=== PATIENT | female | born 2000 | race Hispanic/Latino ===

== ENCOUNTER 2019-08-30 07:05 | Emergency (ER) | payer MEDICAID ==
[2019-08-30 07:12] VITALS: BP 111/62
[2019-08-30 08:08] LABS: Bacteria,Urine 2+ /HPF (Negative); Bilirubin,Urine NEG (Negative); Blood,Urine NEG (Negative); Color,Urine Yellow (Yellow); Mucus,Urine 1+ /HPF; Protein,Urine <15 mg/dL mg/dL (Negative); Urobilinogen,Urine < 2.0 mg/dL (<2.0)
--- NOTE | 2019-08-30 08:17 | Emergency Department Report ---
ED Female HPI - General Chief complaint: Urogenital-Female Stated complaint: 14WKS PREG, IRRITATION Source: patient Mode of arrival: Ambulatory Limitations: No Limitations - History of Present Illness Initial comments: 19-year-old -[place]ralt[place] female that is 1 para 0 last menstrual period was 05/19/2019 presents to the emergency room complaining of vaginal irritation for 6 days. Patient states that she has been having some mild thick vaginal discharge with labia irritation. Patient states sometimes it itches sometimes it ramos. Patient denies any dysuria. Patient is followed by OB Dr. Maxwell Gaona. She reports she has an appointment with him next week but could not wait. Patient denies any abdominal pain vaginal bleeding. She has no concerns for STDs. Onset/Timin -: days(s) Severity scale (0 -10): 7 Consistency: constant Improves with: none Worsens with: none Are you Now?: Yes Last Menstrual Period: 05/19/19 EDC: 02/23/20 Associated Symptoms: denies other symptoms - Related Data Sexually active: Yes : 1 Para: 0 Previous Rx's Medication Instructions Recorded Last Taken Type cephALEXin [Keflex] 500 mg PO Q12HR 7 Days #14 cap 08/30/19 Unknown Rx Allergies Allergy/AdvReac Type Severity Reaction Status Date / Time No Known Allergies Allergy Unverified 08/30/19 07:08 ED Review of Systems ROS: Stated complaint: 14WKS PREG, IRRITATION Other details as noted in HPI Comment: All other systems reviewed and negative ED Past Medical Hx - Past Medical History Previous Medical History?: No - Surgical History Past Surgical History?: No - Social History Smoking Status: Never Smoker Substance Use Type: None - Medications Home Medications: Home Medications Medication Instructions Recorded Confirmed Last Taken Type cephALEXin [Keflex] 500 mg PO Q12HR 7 Days #14 cap 08/30/19 Unknown Rx ED Physical Exam - General Limitations: No Limitations General appearance: alert, in no apparent distress - Head Head exam: Present: atraumatic, normocephalic - Eye Eye exam: Present: normal appearance - ENT ENT exam: Present: mucous membranes moist - External exam: Present: erythema, swelling Speculum exam: Present: vaginal discharge - Back Exam Back exam: Present: normal inspection - Neurological Exam Neurological exam: Present: alert, oriented X3, normal gait - Psychiatric Psychiatric exam: Present: normal affect, normal mood - Skin Skin exam: Present: warm, dry, intact, normal color. Absent: rash ED Course Vital Signs 08/30/19 07:08 Temperature 98.1 F Pulse Rate 98 H Respiratory 18 Rate Blood Pressure 111/62 O2 Sat by Pulse 97 Oximetry ED Medical Decision Making - Medical Decision Making 19-year-old -[place] female that is 1 para 0 last menstrual period was 05/19/2019 presents to the emergency room complaining of vaginal irritation for 6 days. Patient states that she has been having some mild thick vaginal discharge with labia irritation. Patient states sometimes it itches sometimes it ramos. Patient denies any dysuria. Patient is followed by OB Dr. Maxwell Gaona. She reports she has an appointment with him next week but could not wait. Patient denies any abdominal pain vaginal bleeding. She has no concerns for STDs. Wet prep sent urinalysis has been sent. Critical care attestation.: If time is entered above; I have spent that time in minutes in the direct care of this critically ill patient, excluding procedure time. ED Disposition Clinical Impression: UTI (urinary tract infection) during Disposition: DC-01 TO HOME OR SELFCARE Is pt being admited?: No Does the pt Need Aspirin: No Condition: Stable Instructions: Urinary Tract Infection in Women (ED) Additional Instructions: Urinalysis shows history of positive for urinary tract infection. Your vaginal wet prep was negative for any trichomonas no bacterial vaginosis or yeast infection. Please take medication as prescribed. Increase your fluid intake. And follow-up with your [facility] Prescriptions: cephALEXin [Keflex] 500 mg PO Q12HR 7 Days #14 cap Forms: Work/School Release Form(ED)
== END 2019-08-30 08:55 | disposition home or self-care (01) ==
LOC: ED 07:05
DX: O23.31 Infections of other parts of urinary tract in pregnancy, first trimester (principal); Z3A.13 13 weeks gestation of pregnancy
CPT/HCPCS: 81001; 87086; 87210

== ENCOUNTER 2020-10-19 09:12 | Emergency (ER) | payer MEDICAID ==
[2020-10-19 09:45] VITALS: BP 126/76
--- NOTE | 2020-10-19 16:58 | Emergency Department Report ---
Stated Complaint: POSS - HPI History of Present Illness: 20-year-old -L[place]anese female presents to the emergency room reporting that she had a home test and wants a confirmation test. Patient currently has no vaginal discharge or vaginal bleeding no pelvic pain no dysuria no fever no chills no nausea no vomiting. - Exam Vital Signs: Vital Signs 10/19/20 09:44 Pulse Rate 96 H Blood Pressure 126/76 [Right] O2 Sat by Pulse 96 Oximetry Physical Exam: General: Awake, appropriately interactive, no acute distress. Neck: Supple. Full range of motion intact. Cardiovascular: Normal peripheral perfusion. Pulmonary: No respiratory distress. Patient is speaking normally without use of accessory muscles. Skin: No apparent rashes or lesions. Neurological: No facial asymmetry. Speech is clear. Follows commands. Patient is alert and oriented. Musculoskeletal: Full range of motion, no crepitus. No tenderness to palpate nonerythematous no edema test appreciated. Able to bear weight and ambulate without difficulty. Distal neurovascular and motor/sensory function is intact. Psych: Cooperative. Appropriate mood and affect. MSE screening note: Focused history and physical exam performed. Due to findings the following was ordered: 20-year-old -L[place]anese female presents to the emergency room reporting that she had a home test and wants a confirmation test. Patient currently has no vaginal discharge or vaginal bleeding no pelvic pain no dysuria no fever no chills no nausea no vomiting. [facility] at [facility] [place]. Handout was given to patient ED Disposition for MSE Is pt being admited?: No Does the pt Need Aspirin: No Condition: Stable Additional Instructions: Recommend to follow-up at the [facility] in [place]. Referrals: PRIMARY CARE, [Primary Care Provider] - 3-5 Days ,[facility] [Other] - 3-5 Days
== END 2020-10-19 10:00 ==
LOC: ED 09:12
DX: Z32.00 Encounter for pregnancy test, result unknown (principal)
CPT/HCPCS: 99281

== ENCOUNTER 2020-10-26 09:23 | Emergency (ER) | payer MEDICAID ==
[2020-10-26 10:00] VITALS: BP 110/62
[2020-10-26 10:56] LABS: Bilirubin,Urine NEG (Negative); Blood,Urine SM (Negative); Color,Urine Yellow (Yellow); Mucus,Urine 3+ /HPF
--- NOTE | 2020-10-26 11:04 | Emergency Department Report ---
ED HPI - General Chief complaint: Vaginal Bleeding Stated complaint: 5WKS PREG/BLEEDING/CRAMPING Time Seen by Provider: 10/26/20 10:26 Source: patient Mode of arrival: Ambulatory Limitations: No Limitations - History of Present Illness Initial comments: This is a 20-year-old female nontoxic, well nourished in appearance, no acute signs of distress presents to the ED with c/o of vaginal bleeding and pelvic pain x2 days. Patient stated is about 8 weeks . Patient stated she goes about 1-2 pads in a day. Paitent stated is more of spotting. Patient denies any upper abdominal pain. Patient denies any vaginal discharge or foul odor. Patient denies any nausea, vomiting, chest pain, shortness of breathe, fever, chills, headache, stiff neck, numbness, tingling. Patient denies any urinary symptoms. Patient denies any allergies or PMH. Last menstrual cycle was about September 16. MD Complaint: vaginal bleeding, other (pelvic pain) -: days(s) Location: pelvis Radiation: none Severity: mild Severity scale (0 -10): 3 Quality: cramping, aching Consistency: constant Improves with: none Worsens with: none Associated symptoms: vaginal bleeding. denies: nausea/vomiting, vaginal discharge, abdominal pain, dysuria, headache, vision changes, malaise, dysparuenia, rash, seizure, shortness of breath, syncope, weakness Vaginal bleeding: light :: Yes Number of weeks : 8 Pre-mary jane care: none - Related Data Previous Rx's Medication Instructions Recorded Last Taken Type cephALEXin [Keflex] 500 mg PO Q12HR 7 Days #14 cap 08/30/19 Unknown Rx 21/Iron Fu/Folic Acid 1 each PO DAILY #30 tablet 10/26/20 Unknown Rx [ Complete Caplet] Allergies Allergy/AdvReac Type Severity Reaction Status Date / Time No Known Allergies Allergy Unverified 08/30/19 07:08 ED Review of Systems ROS: Stated complaint: 5WKS PREG/BLEEDING/CRAMPING Other details as noted in HPI Constitutional: denies: chills, fever Eyes: denies: eye pain, eye discharge, vision change ENT: denies: ear pain, throat pain Respiratory: denies: cough, shortness of breath, wheezing Cardiovascular: denies: chest pain, palpitations Endocrine: no symptoms reported Gastrointestinal: denies: abdominal pain, nausea, diarrhea Genitourinary: abnormal menses. denies: urgency, dysuria, discharge Musculoskeletal: denies: back pain, joint swelling, arthralgia Skin: denies: rash, lesions Neurological: denies: headache, weakness, paresthesias Psychiatric: denies: anxiety, depression Hematological/Lymphatic: denies: easy bleeding, easy bruising ED Past Medical Hx - Past Medical History Previous Medical History?: No - Surgical History Past Surgical History?: No - Social History Smoking Status: Never Smoker Substance Use Type: None - Medications Home Medications: Home Medications Medication Instructions Recorded Confirmed Last Taken Type cephALEXin [Keflex] 500 mg PO Q12HR 7 Days #14 cap 08/30/19 Unknown Rx 21/Iron Fu/Folic Acid 1 each PO DAILY #30 tablet 10/26/20 Unknown Rx [ Complete Caplet] ED Physical Exam - General Limitations: No Limitations General appearance: alert, in no apparent distress - Head Head exam: Present: atraumatic, normocephalic - Eye Eye exam: Present: normal appearance - Neck Neck exam: Present: normal inspection, full ROM. Absent: lymphadenopathy - Respiratory Respiratory exam: Absent: respiratory distress - Cardiovascular Cardiovascular Exam: Present: regular rate - GI/Abdominal GI/Abdominal exam: Present: soft. Absent: distended, tenderness - Extremities Exam Extremities exam: Present: normal inspection, full ROM - Back Exam Back exam: Present: normal inspection, full ROM. Absent: tenderness, CVA tenderness (R), CVA tenderness (L), muscle spasm, paraspinal tenderness, vertebral tenderness, rash noted - Neurological Exam Neurological exam: Present: alert, oriented X3, normal gait - Psychiatric Psychiatric exam: Present: normal affect, normal mood - Skin Skin exam: Present: warm, dry, intact, normal color. Absent: rash ED Course Vital Signs 10/26/20 09:57 Temperature 98.8 F Pulse Rate 98 H Respiratory 18 Rate Blood Pressure 110/62 [Right] O2 Sat by Pulse 98 Oximetry - Reevaluation(s) Reevaluation #1: 10/26/20 11:04 Patient is speaking in full sentences with no signs of distress noted. ED Medical Decision Making - Lab Data Result diagrams: 10/26/20 10:33 Lab Results 10/26/20 10/26/20 10/26/20 Range/Units 10:03 10:33 10:33 WBC 6.7 (4.5-11.0) K/mm3 RBC 4.32 (3.65-5.03) M/mm3 Hgb 13.7 (10.1-14.3) gm/dl Hct 39.8 (30.3-42.9) % MCV 92 (79-97) fl MCH 32 (28-32) pg MCHC 34 (30-34) % RDW 12.7 L (13.2-15.2) % Plt Count 224 (140-440) K/mm3 Lymph % (Auto) 19.5 (13.4-35.0) % Rogers % (Auto) 8.3 H (0.0-7.3) % Eos % (Auto) 2.0 (0.0-4.3) % Baso % (Auto) 0.4 (0.0-1.8) % Lymph # (Auto) 1.3 (1.2-5.4) K/mm3 Rogers # (Auto) 0.6 (0.0-0.8) K/mm3 Eos # (Auto) 0.1 (0.0-0.4) K/mm3 Baso # (Auto) 0.0 (0.0-0.1) K/mm3 Seg Neutrophils % 69.8 (40.0-70.0) % Seg Neutrophils # 4.7 (1.8-7.7) K/mm3 PT (12.2-14.9) Sec. INR (0.87-1.13) APTT (24.2-36.6) Sec. HCG, Quant (0-4) mIU/mL Urine Color Yellow (Yellow) Urine Turbidity Slightly-cloudy (Clear) Urine pH 6.0 (5.0-7.0) Ur Specific [place]ham 1.024 (1.003-1.030) Urine Protein 30 mg/dl (Negative) mg/dL Urine Glucose (UA) Neg (Negative) mg/dL Urine Ketones Neg (Negative) mg/dL Urine Blood Sm (Negative) Urine Nitrite Neg (Negative) Urine Bilirubin Neg (Negative) Urine Urobilinogen 2.0 (<2.0) mg/dL Ur Leukocyte Esterase Sm (Negative) Urine WBC (Auto) 6.0 (0.0-6.0) /HPF Urine RBC (Auto) 3.0 (0.0-6.0) /HPF U Epithel Cells (Auto) 10.0 (0-13.0) /HPF Urine Mucus 3+ /HPF Blood Type A POSITIVE 10/26/20 10/26/20 Range/Units 10:33 10:53 WBC (4.5-11.0) K/mm3 RBC (3.65-5.03) M/mm3 Hgb (10.1-14.3) gm/dl Hct (30.3-42.9) % MCV (79-97) fl MCH (28-32) pg MCHC (30-34) % RDW (13.2-15.2) % Plt Count (140-440) K/mm3 Lymph % (Auto) (13.4-35.0) % Rogers % (Auto) (0.0-7.3) % Eos % (Auto) (0.0-4.3) % Baso % (Auto) (0.0-1.8) % Lymph # (Auto) (1.2-5.4) K/mm3 Rogers # (Auto) (0.0-0.8) K/mm3 Eos # (Auto) (0.0-0.4) K/mm3 Baso # (Auto) (0.0-0.1) K/mm3 Seg Neutrophils % (40.0-70.0) % Seg Neutrophils # (1.8-7.7) K/mm3 PT 15.2 H (12.2-14.9) Sec. INR 1.15 H (0.87-1.13) APTT 34.3 (24.2-36.6) Sec. HCG, Quant 5068 H (0-4) mIU/mL Urine Color (Yellow) Urine Turbidity (Clear) Urine pH (5.0-7.0) Ur Specific [place] (1.003-1.030) Urine Protein (Negative) mg/dL Urine Glucose (UA) (Negative) mg/dL Urine Ketones (Negative) mg/dL Urine Blood (Negative) Urine Nitrite (Negative) Urine Bilirubin (Negative) Urine Urobilinogen (<2.0) mg/dL Ur Leukocyte Esterase (Negative) Urine WBC (Auto) (0.0-6.0) /HPF Urine RBC (Auto) (0.0-6.0) /HPF U Epithel Cells (Auto) (0-13.0) /HPF Urine Mucus /HPF Blood Type - Radiology Data [facility] [address] [place] [address] Ultrasound Report Signed Patient: ROB MARKHAM MR#: [id number] : 2000 Acct:[id number] Age/Sex: 20 / F ADM Date: 10/26/20 Loc: ED Attending Dr: Ordering Physician: FILOMENA GOOD NP Date of Service: 10/26/20 Procedure(s): US OB <= 14 weeks fetus Accession Number(s): [id number] cc: FILOMENA GOOD NP TRANSABDOMINAL AND TRANSVAGINAL OB PELVIC ULTRASOUND INDICATION / CLINICAL INFORMATION: Pelvic pain and moderate vaginal bleeding. COMPARISON: None available. FINDINGS: Transabdominal: The uterus measures 8.6 x 3.8 x 6.1 cm. There is a tiny saclike structure in the endometrial cavity in the uterine body. The right ovary measures 3.2 x 1.6 x 1.5 cm and the left ovary 3.5 x 2.3 x 1.8 cm. There is normal blood flow to both ovaries on Doppler exam. There is a trace amount of free fluid in the cul-de-sac. There is no evidence of an extraovarian mass. Transvaginal: There is a tiny saclike structure in the endometrial cavity measuring 5 weeks 1 day. A possible small yolk sac is present. I do not identify a pole with cardiac activity. There is no evidence of implantation hemorrhage. The right ovary measures 3.4 x 1.9 x 2.3 cm and contains a subcentimeter cyst. The left ovary measures 3.9 x 2.4 x 2.4 cm and contains a 1.9 cm corpus luteal cyst. There is a trace amount of free fluid in the cul-de-sac. IMPRESSION: 1. Probable 5 week 1 day intrauterine gestational sac is of uncertain viability. A follow-up ultrasound in 7-10 days may be helpful in further evaluation. 2. 1.9 cm corpus luteal cyst in the left ovary. Trace amount of free fluid in the cul-de-sac. No evidence of an extraovarian mass. Signer Name: Nate Casas MD Signed: 10/26/2020 11:33 AM Workstation Name: [id number] Transcribed By: RT Dictated By: Nate Casas MD Electronically Authenticated By: Nate Casas MD Signed Date/Time: 10/26/20 1133 DD/ 1129 TD/TT: [facility] [address] [place] [address] Ultrasound Report Signed Patient: ROB MARKHAM MR#: [id number] : 2000 Acct:[id number] Age/Sex: 20 / F ADM Date: 10/26/20 Loc: ED Attending Dr: Ordering Physician: FILOMENA GOOD NP Date of Service: 10/26/20 Procedure(s): US OB transvaginal Accession Number(s): [id number] cc: FILOMENA GOOD NP TRANSABDOMINAL AND TRANSVAGINAL OB PELVIC ULTRASOUND INDICATION / CLINICAL INFORMATION: Pelvic pain and moderate vaginal bleeding. COMPARISON: None available. FINDINGS: Transabdominal: The uterus measures 8.6 x 3.8 x 6.1 cm. There is a tiny saclike structure in the endometrial cavity in the uterine body. The right ovary measures 3.2 x 1.6 x 1.5 cm and the left ovary 3.5 x 2.3 x 1.8 cm. There is normal blood flow to both ovaries on Doppler exam. There is a trace amount of free fluid in the cul-de-sac. There is no evidence of an extraovarian mass. Transvaginal: There is a tiny saclike structure in the endometrial cavity measuring 5 weeks 1 day. A possible small yolk sac is present. I do not identify a pole with cardiac activity. There is no evidence of implantation hemorrhage. The right ovary measures 3.4 x 1.9 x 2.3 cm and contains a subcentimeter cyst. The left ovary measures 3.9 x 2.4 x 2.4 cm and contains a 1.9 cm corpus luteal cyst. There is a trace amount of free fluid in the cul-de-sac. IMPRESSION: 1. Probable 5 week 1 day intrauterine gestational sac is of uncertain viability. A follow-up ultrasound in 7-10 days may be helpful in further evaluation. 2. 1.9 cm corpus luteal cyst in the left ovary. Trace amount of free fluid in the cul-de-sac. No evidence of an extraovarian mass. Signer Name: Nate Casas MD Signed: 10/26/2020 11:33 AM Workstation Name: [id number] Transcribed By: RT Dictated By: Nate Casas MD Electronically Authenticated By: Nate Casas MD Signed Date/Time: 10/26/20 1133 DD/ 1129 TD/TT: - Medical Decision Making This is a 20-year-old female presents with threatened miscarriage. Patient is stable and was examined by me. Normal abdominal exam. US OB obtained and dictated by the radiologist. Ua obtained. Quantative serum test obtained. Patient notified of the US report with no questions noted by the patient. Patient was instructed f/u with [facility] in 3-5 days. RH factor positive. Labs within normal limits. At time of discharge, the patient does not seem toxic or ill in appearance. No acute signs of distress noted. Patient agrees to discharge treatment plan of care. No further questions noted by the patient. Critical care attestation.: If time is entered above; I have spent that time in minutes in the direct care of this critically ill patient, excluding procedure time. ED Disposition Clinical Impression: Threatened miscarriage Disposition: DC-01 TO HOME OR SELFCARE Is pt being admited?: No Does the pt Need Aspirin: No Condition: Stable Instructions: Threatened Miscarriage Additional Instructions: Follow-up with a [facility] doctor in 3-5 days or if symptoms worsen and continue return to emergency room as soon as possible. Prescriptions: 21/Iron Fu/Folic Acid [ Complete Caplet] 1 each PO DAILY #30 tablet Referrals: [facility] [Other] - 3-5 Days [facility] [Provider Group] - 3-5 Days [facility] [Provider Group] - 3-5 Days Forms: Work/School Release Form(ED) Time of Disposition: 11:49
[2020-10-26 11:30] LABS: Basophils % (Auto) 0.4 % (0.0-1.8); Eosinophils # (Auto) 0.1 K/mm3 (0.0-0.4); Hematocrit 39.8 % (30.3-42.9); Hemoglobin 13.7 gm/dl (10.1-14.3); Lymphocytes # (Auto) 1.3 K/mm3 (1.2-5.4); Lymphocytes % (Auto) 19.5 % (13.4-35.0); Mean Corpuscular HGB Conc 34 % (30-34); Mean Corpuscular Volume 92 fl (79-97); Monocytes # (Auto) 0.6 K/mm3 (0.0-0.8); Monocytes % (Auto) 8.3 % (0.0-7.3); Platelet Count 224 K/mm3 (140-440); Red Blood Count 4.32 M/mm3 (3.65-5.03); Red Cell Distribution Width 12.7 % (13.2-15.2)
--- NOTE | 2020-10-26 11:38 | Ultrasound Report ---
TRANSABDOMINAL AND TRANSVAGINAL OB PELVIC ULTRASOUND INDICATION / CLINICAL INFORMATION: Pelvic pain and moderate vaginal bleeding. COMPARISON: None available. FINDINGS: Transabdominal: The uterus measures 8.6 x 3.8 x 6.1 cm. There is a tiny saclike structure in the endo metrial cavity in the uterine body. The right ovary measures 3.2 x 1.6 x 1.5 cm and the left ovary 3. 5 x 2.3 x 1.8 cm. There is normal blood flow to both ovaries on Doppler exam. There is a trace amount of free fluid in the cul-de-sac. There is no evidence of an extraovarian mass. Transvaginal: There is a tiny saclike structure in the endometrial cavity measuring 5 weeks 1 day. A possible small yolk sac is present. I do not identify a pole with cardiac activity. There is no evidence of implantation hemorrhage. The right ovary measures 3.4 x 1.9 x 2.3 cm and contains a subc entimeter cyst. The left ovary measures 3.9 x 2.4 x 2.4 cm and contains a 1.9 cm corpus luteal cyst. There is a trace amount of free fluid in the cul-de-sac. IMPRESSION: 1. Probable 5 week 1 day intrauterine gestational sac is of uncertain viability. A follow-up ultrasou nd in 7-10 days may be helpful in further evaluation. 2. 1.9 cm corpus luteal cyst in the left ovary. Trace amount of free fluid in the cul-de-sac. No evid ence of an extraovarian mass. Signer Name: Antonio Casas MD Signed: 10/26/2020 11:33 AM Workstation Name: [id number]
[2020-10-26 11:56] LABS: INR 1.15 (0.87-1.13)
[2020-10-26 11:57] LABS: Partial Thromboplastin Time 34.3 Sec. (24.2-36.6)
== END 2020-10-26 12:03 | disposition home or self-care (01) ==
LOC: ED 09:23
DX: O20.0 Threatened abortion (principal); O46.8X1 Other antepartum hemorrhage, first trimester; Z3A.08 8 weeks gestation of pregnancy
CPT/HCPCS: 36415; 76801; 76817; 81001; 84702; 85025; 85610; 85730; 86900; 86901; 99284

== ENCOUNTER 2020-10-30 18:43 | Emergency (ER) | payer MEDICAID | END 2020-10-30 19:51 | LOC: ED 18:43 | DX: Z00.00 Encounter for general adult medical examination without abnormal findings (principal); Z53.21 Procedure and treatment not carried out due to patient leaving prior to being seen by health care provider ==

== ENCOUNTER 2021-02-22 00:15 | Emergency (ER) | payer MEDICAID ==
[2021-02-22] MEDS ORDERED: ONDANSETRON 4 MG ODT TAB PO ONE (00:49)
[2021-02-22] MEDS ORDERED: predniSONE 50 MG TAB PO ONE (00:49)
[2021-02-22] MEDS ORDERED: IBUPROFEN 600 MG TAB PO ONE (00:49)
[2021-02-22] MEDS ORDERED: AMOXICILLIN/K CLAV 875/125MG TAB PO ONE (00:50)
--- NOTE | 2021-02-22 00:55 | Emergency Department Report ---
- General Chief Complaint: Upper Respiratory Infection Stated Complaint: Congestion, TADEO, weak Source: patient Mode of arrival: Ambulatory Limitations: No Limitations - History of Present Illness Initial Comments: Patient is a 20-year-old -Bangl[place] female with no past medical history who presents to the ED with complaint of acute onset persistent severe frontal sinus pressure and headache, lightheadedness, nasal and sinus congestion, severe sore throat and dysphagia and mild dry cough for the last 1 week. Patient states that she has been taking [id number] medications with no relief. Patient states that her daughter was diagnosed with metapneumovirus infection about 1 week ago. Patient states that about 1 hour prior to arrival in the ED her sore throat got worse as well as headache. Patient denies dizziness, syncope, chest pain or shortness of breath, fever, chills, nausea and vomiting or diarrhea, abdominal pain, traumatic injury or fall. MD Complaint: cough, sore throat, rhinorrhea, nasal congestion, sinus pain, other (Frontal sinus pressure and headache) -: Sudden, week(s) (1) Severity: severe Severity scale (0 -10): 7 Quality: sharp, aching Consistency: constant Improves With: nothing Worsens With: nothing Context: sick contacts Associated Symptoms: denies other symptoms, headache, rhinorrhea, nasal congestion, sore throat, cough. denies: fever, chills, myalgias, diaphoresis, stiff neck, chest pain, shortness of breath, abdominal pain, nausea, vomiting, diarrhea, dysuria, rash, confusion, right sweats, weight loss, epistaxis, hoarseness, ear pain, other Treatments Prior to Arrival: "cold medicine" - Related Data Previous Rx's Medication Instructions Recorded Last Taken Type cephALEXin [Keflex] 500 mg PO Q12HR 7 Days #14 cap 08/30/19 Unknown Rx 21/Iron Fu/Folic Acid 1 each PO DAILY #30 tablet 10/26/20 Unknown Rx [ Complete Caplet] Amoxicillin [Trimox CAP] 500 mg PO Q8H #30 capsule 02/22/21 Unknown Rx Cetirizine HCl [Zyrtec 10mg tab] 10 mg PO DAILY #30 tablet 02/22/21 Unknown Rx Ibuprofen [Motrin] 600 mg PO Q8H PRN #30 tablet 02/22/21 Unknown Rx predniSONE [Deltasone] 40 mg PO QDAY #10 tab 02/22/21 Unknown Rx Allergies Allergy/AdvReac Type Severity Reaction Status Date / Time No Known Allergies Allergy Unverified 08/30/19 07:08 ED Review of Systems ROS: Stated complaint: Congestion, TADEO, weak Other details as noted in HPI Constitutional: denies: chills, fever Eyes: denies: eye pain, eye discharge, vision change ENT: throat pain, congestion, other (Frontal sinus pressure and headache). denies: ear pain Respiratory: cough. denies: shortness of breath, wheezing Cardiovascular: denies: chest pain, palpitations Endocrine: no symptoms reported Gastrointestinal: denies: abdominal pain, nausea, diarrhea Genitourinary: denies: urgency, dysuria, discharge Musculoskeletal: denies: back pain, joint swelling, arthralgia Skin: denies: rash, lesions Neurological: headache, other (Lightheadedness). denies: weakness, paresthesias Psychiatric: denies: anxiety, depression Hematological/Lymphatic: denies: easy bleeding, easy bruising ED Past Medical Hx - Past Medical History Previous Medical History?: No - Surgical History Past Surgical History?: No - Social History Smoking Status: Never Smoker Substance Use Type: None - Medications Home Medications: Home Medications Medication Instructions Recorded Confirmed Last Taken Type cephALEXin [Keflex] 500 mg PO Q12HR 7 Days #14 cap 08/30/19 Unknown Rx 21/Iron Fu/Folic Acid 1 each PO DAILY #30 tablet 10/26/20 Unknown Rx [ Complete Caplet] Amoxicillin [Trimox CAP] 500 mg PO Q8H #30 capsule 02/22/21 Unknown Rx Cetirizine HCl [Zyrtec 10mg tab] 10 mg PO DAILY #30 tablet 02/22/21 Unknown Rx Ibuprofen [Motrin] 600 mg PO Q8H PRN #30 tablet 02/22/21 Unknown Rx predniSONE [Deltasone] 40 mg PO QDAY #10 tab 02/22/21 Unknown Rx ED Physical Exam - General Limitations: No Limitations General appearance: alert, in no apparent distress - Head Head exam: Present: atraumatic, normocephalic, normal inspection - Eye Eye exam: Present: normal appearance, PERRL, EOMI Pupils: Present: normal accommodation - ENT ENT exam: Present: mucous membranes moist, TM's normal bilaterally, normal external ear exam, other (Mildly erythematous oropharynx; no exudates; grossly congested nasal passages; palpable frontal sinus tenderness) - Neck Neck exam: Present: normal inspection, full ROM, lymphadenopathy (Palpable anterior right cervical lymph node tenderness) - Respiratory Respiratory exam: Present: normal lung sounds bilaterally. Absent: respiratory distress, wheezes, rales, rhonchi, stridor, chest wall tenderness, accessory muscle use, decreased breath sounds, prolonged expiratory - Cardiovascular Cardiovascular Exam: Present: regular rate, normal rhythm, normal heart sounds. Absent: systolic murmur, diastolic murmur, rubs, gallop - GI/Abdominal GI/Abdominal exam: Present: soft, normal bowel sounds. Absent: tenderness, guarding, rebound, hyperactive bowel sounds, mass - Extremities Exam Extremities exam: Present: normal inspection, full ROM, normal capillary refill - Back Exam Back exam: Present: normal inspection, full ROM. Absent: tenderness, CVA tenderness (R), CVA tenderness (L), muscle spasm, paraspinal tenderness, vertebral tenderness - Neurological Exam Neurological exam: Present: alert, oriented X3, CN II-XII intact, normal gait, reflexes normal - Psychiatric Psychiatric exam: Present: normal affect, normal mood - Skin Skin exam: Present: warm, dry, intact, normal color. Absent: rash ED Course Vital Signs 02/22/21 00:20 Temperature 98.2 F Pulse Rate 108 H Respiratory 18 Rate Blood Pressure 115/73 [Right] O2 Sat by Pulse 100 Oximetry ED Medical Decision Making - Medical Decision Making This is a 20-year-old -B[place] female with no past medical history who presents to the ED with complaint of acute onset persistent severe frontal sinus pressure and headache, lightheadedness, nasal and sinus congestion, severe sore throat and dysphagia and mild dry cough for the last 1 week. Patient states that she has been taking [id number] medications with no relief. Patient states that her daughter was diagnosed with metapneumovirus infection about 1 week ago. In the ED, patient is alert and oriented x3 and is not in any distress. Patient is however tachycardic but afebrile in triage. Based on the history and physical exam findings, the patient symptoms are likely due to acute upper respiratory infection, sinusitis, or acute pharyngitis. Patient was treated for pain in the ED and discharged home on pain medications and antibiotics and advised to follow-up with her primary care physician in 7 to 10 days for reevaluation. Patient advised return to the ED immediately if symptoms get worse. - Differential Diagnosis Pharyngitis; sinusitis; URI; bronchitis; viral syndrome Critical care attestation.: If time is entered above; I have spent that time in minutes in the direct care of this critically ill patient, excluding procedure time. ED Disposition Clinical Impression: Acute upper respiratory infection Acute pharyngitis Qualifiers: Pharyngitis/tonsillitis etiology: other specified organisms Qualified Code(s): J02.8 - Acute pharyngitis due to other specified organisms Acute tonsillitis Qualifiers: Pharyngitis/tonsillitis etiology: other specified organisms Qualified Code(s): J03.80 - Acute tonsillitis due to other specified organisms Acute frontal sinusitis Qualifiers: Recurrence: non-recurrent Qualified Code(s): J01.10 - Acute frontal sinusitis, unspecified Disposition: 01 HOME / SELF CARE / HOMELESS Is pt being admited?: No Does the pt Need Aspirin: No Condition: Stable Instructions: Tonsillitis, [id number], Sinusitis, Adult, [id number], Upper Respiratory Infection, Adult, [id number], Pharyngitis, [id number] Additional Instructions: Your symptoms are likely due to acute upper respiratory infection versus sinusitis versus pharyngitis. Therefore take medications with food, drink plenty of fluids and follow-up with your primary care physician in 7 to 10 days for reevaluation. Return to the ED immediately if symptoms get worse. Prescriptions: predniSONE [Deltasone] 40 mg PO QDAY #10 tab Ibuprofen [Motrin] 600 mg PO Q8H PRN #30 tablet PRN Reason: Pain Amoxicillin [Trimox CAP] 500 mg PO Q8H #30 capsule Cetirizine HCl [Zyrtec 10mg tab] 10 mg PO DAILY #30 tablet Referrals: [facility] [Provider Group] - 3-5 Days Time of Disposition: 00:56 Print Language: BRAZILIAN
[2021-02-22 03:07] VITALS: BP 112/67
== END 2021-02-22 03:08 | disposition home or self-care (01) ==
LOC: ED 00:15
DX: J06.9 Acute upper respiratory infection, unspecified (principal); J03.80 Acute tonsillitis due to other specified organisms; J01.10 Acute frontal sinusitis, unspecified
CPT/HCPCS: 99282; J7512; J3490; Q0162

== ENCOUNTER 2021-03-31 07:16 | Emergency (ER) | payer MEDICAID ==
[2021-03-31 07:50] VITALS: BP 128/70
--- NOTE | 2021-03-31 07:57 | Emergency Department Report ---
- General Stated Complaint: BODY ACHES Time Seen by Provider: 03/31/21 07:47 - History of Present Illness Initial Comments: Patient presents with a 1 day history of headache with fever and cough. She has had congestion. She has had a known coronavirus exposure. Her sister tested positive yesterday. She does report muscle aches and body aches. She has had no vomiting or diarrhea. There is no dysuria or frequency. She has not had any other exposure. She came in for evaluation treatment because she was not feeling well. She did not get vaccinated for COVID. She was not vaccinated for the flu. - Related Data Previous Rx's Medication Instructions Recorded Last Taken Type 21/Iron Fu/Folic Acid 1 each PO DAILY #30 tablet 10/26/20 Unknown Rx [ Complete Caplet] Cetirizine HCl [Zyrtec 10mg tab] 10 mg PO DAILY #30 tablet 02/22/21 Unknown Rx predniSONE [Deltasone] 40 mg PO QDAY #10 tab 02/22/21 Unknown Rx Albuterol Sulfate [Proventil Hfa] 2 puff IH 4XD #1 inh 03/31/21 Unknown Rx Benzonatate [Tessalon Perles] 100 mg PO Q8HR #21 cap 03/31/21 Unknown Rx Ibuprofen [Motrin 600 MG tab] 600 mg PO Q8H PRN #30 tablet 03/31/21 Unknown Rx Allergies Allergy/AdvReac Type Severity Reaction Status Date / Time No Known Allergies Allergy Unverified 08/30/19 07:08 ED Review of Systems ROS: Stated complaint: BODY ACHES Other details as noted in HPI Comment: All other systems reviewed and negative Constitutional: fever Eyes: denies: vision change ENT: denies: epistaxis Respiratory: cough Cardiovascular: denies: chest pain Endocrine: denies: unexplained weight loss Gastrointestinal: nausea Genitourinary: denies: dysuria Musculoskeletal: denies: back pain Skin: denies: rash Neurological: headache Hematological/Lymphatic: denies: easy bruising ED Past Medical Hx - Social History Smoking Status: Never Smoker Substance Use Type: None - Medications Home Medications: Home Medications Medication Instructions Recorded Confirmed Last Taken Type 21/Iron Fu/Folic Acid 1 each PO DAILY #30 tablet 10/26/20 Unknown Rx [ Complete Caplet] Cetirizine HCl [Zyrtec 10mg tab] 10 mg PO DAILY #30 tablet 02/22/21 Unknown Rx predniSONE [Deltasone] 40 mg PO QDAY #10 tab 02/22/21 Unknown Rx Albuterol Sulfate [Proventil Hfa] 2 puff IH 4XD #1 inh 03/31/21 Unknown Rx Benzonatate [Tessalon Perles] 100 mg PO Q8HR #21 cap 03/31/21 Unknown Rx Ibuprofen [Motrin 600 MG tab] 600 mg PO Q8H PRN #30 tablet 03/31/21 Unknown Rx ED Physical Exam - General Limitations: No Limitations, Other (Pulse ox noted and normal) General appearance: alert, in no apparent distress - Head Head exam: Present: atraumatic, normocephalic - Eye Eye exam: Present: normal appearance, EOMI - ENT ENT exam: Present: normal orophraynx, normal external ear exam - Neck Neck exam: Present: normal inspection. Absent: meningismus - Respiratory Respiratory exam: Present: normal lung sounds bilaterally. Absent: respiratory distress - Cardiovascular Cardiovascular Exam: Present: normal rhythm, tachycardia - Extremities Exam Extremities exam: Present: normal capillary refill - Back Exam Back exam: Present: full ROM - Neurological Exam Neurological exam: Present: alert, oriented X3, CN II-XII intact, normal gait - Psychiatric Psychiatric exam: Present: normal affect, normal mood - Skin Skin exam: Present: warm, dry ED Course Vital Signs 03/31/21 07:49 Temperature 102.5 F H Pulse Rate 122 H Respiratory 16 Rate Blood Pressure 128/70 [Right] O2 Sat by Pulse 99 Oximetry - Reevaluation(s) Reevaluation #1: 03/31/21 07:57 Patient was discharged ED Medical Decision Making - Medical Decision Making Patient presents with a viral constellation of symptoms as well as a fever. This is consistent with coronavirus. She will be isolated at home. She will be treated symptomatically. She is not hypoxic. She does not appear to be toxic. She has no other comorbid disease that would suggest she will decompensate. There are no adventitious breath sounds to suggest pneumonia. Critical care attestation.: If time is entered above; I have spent that time in minutes in the direct care of this critically ill patient, excluding procedure time. ED Disposition Clinical Impression: Viral upper respiratory infection, Suspected COVID-19 virus infection Disposition: HOME / SELF CARE / HOMELESS Is pt being admited?: No Condition: Stable Instructions: Upper Respiratory Infection, Adult, [id number] Additional Instructions: Push fluids. Use Tylenol for fever. Return for problems. Follow-up with your regular doctor for recheck and further management. Quarantine at home for 5 days. Wear mask all the time. Prescriptions: Ibuprofen [Motrin 600 MG tab] 600 mg PO Q8H PRN #30 tablet PRN Reason: Pain Albuterol Sulfate [Proventil Hfa] 2 puff IH 4XD #1 inh Benzonatate [Tessalon Perles] 100 mg PO Q8HR #21 cap Referrals: PRIMARY CARE, [Referring] - 3-5 Days
== END 2021-03-31 08:17 | disposition home or self-care (01) ==
LOC: ED 07:16
DX: J06.9 Acute upper respiratory infection, unspecified (principal); Z20.822 Contact with and (suspected) exposure to COVID-19
CPT/HCPCS: 99282